=== PATIENT | female | born 1995 | race Caucasian/White ===

== ENCOUNTER 2016-11-15 15:05 | Emergency (ER) | payer SELFPAY ==
[~2016-11-15] VITALS: Ht 149.9 cm; Wt 49.9 kg
[2016-11-15 15:28] VITALS: BP 167/76
[2016-11-15] MEDS ORDERED: BENZTROPINE MESYLATE (2MG/2ML) 2 MG/2 ML AMPUL ONE (15:28)
[2016-11-15] MEDS ORDERED: BENZTROPINE MESYLATE (2MG/2ML) 2 MG/2 ML AMPUL IM ONE (15:30)
[2016-11-15 15:41] LABS: BASOPHILS % (AUTO) 0.2 % (0.0-2.0); DIFF TOTAL % 100 %; EOSINOPHILS % (AUTO) 0.3 % (0.0-6.0); HEMATOCRIT 43 % (33-45); HEMOGLOBIN 14.4 g/dL (11.5-14.8); LYMPHOCYTES # (AUTO) 3.6 /CMM (0.8-4.8); LYMPHOCYTES % (AUTO) 19.6 % (20.0-44.0); MEAN CORPUSCULAR HEMOGLOBIN 30 PG (26.0-33.0); MEAN CORPUSCULAR HGB CONC 33 g/dl (31.0-36.0); MEAN CORPUSCULAR VOLUME 91 fL (82-100); MONOCYTES # (AUTO) 0.8 /CMM (0.1-1.30); MONOCYTES % (AUTO) 4.6 % (2.0-12.0); NEUTROPHILS # (AUTO) 13.8 /CMM (1.8-8.9); NEUTROPHILS % (AUTO) 75.3 % (43.0-81.0); PLATELET COUNT (AUTO) 411 /CMM (150-450); RED BLOOD CELL COUNT(AUTO) 4.79 MIL/uL (4.0-5.2); WHITE BLOOD COUNT (AUTO) 18.4 K/uL (4.3-11.0)
[2016-11-15 15:49] LABS: ANION GAP 29 (5-14); CALCIUM, SERUM 9.1 mg/dL (8.5-10.1); CARBON DIOXIDE 15 mmol/L (21-32); CHLORIDE 104 mmol/L (98-107); CREATININE 1.4 mg/dL (0.6-1.3); GFR 48 mL/min (>60); GLUCOSE 132 mg/dL (74-106); POTASSIUM 3.5 mmol/L (3.5-5.1); SODIUM SERUM 144 mmol/L (136-145); UREA NITROGEN, BLOOD 13 mg/dL (7-18)
[2016-11-15 15:55] LABS: ALANINE AMINOTRANSFERASE 23 U/L (12-78); ALBUMIN 4.6 g/dL (3.4-5.0); ASPARTATE AMINOTRANSFERASE 13 U/L (15-37); BILIRUBIN,DIRECT 0.1 mg/dL (0.0-0.2); BILIRUBIN,TOTAL 0.7 mg/dL (0.2-1.0); INDIRECT BILIRUBIN 0.6 mg/dL (0.0-1.1); TOTAL PROTEIN, SERUM 8.2 g/dL (6.4-8.2)
[2016-11-15 15:57] LABS: ACETAMINOPHEN 0 ug/ml (10-30)
[2016-11-15] MEDS ORDERED: OLANZAPINE 10 MG VIAL IM ONE ×2 (16:30→16:38)
[2016-11-15] MEDS ORDERED: WATER FOR INJECTION,STERILE 10 ML ONE (16:38)
== END 2016-11-15 18:33 ==
LOC: ER 15:06
DX: R45.851 Suicidal ideations (principal); G40.909 Epilepsy, unspecified, not intractable, without status epilepticus; I10 Essential (primary) hypertension; F20.9 Schizophrenia, unspecified; F32.9 Major depressive disorder, single episode, unspecified; Z88.8 Allergy status to other drugs, medicaments and biological substances
CPT/HCPCS: 36415; 51702; 80048; 80076; 80329; 85025; 96372 ×2; 99285; A4606; G0480 ×2; J0515; J3490; Z7610; G6039-TC

== ENCOUNTER 2019-07-23 15:51 | Emergency (ER) | payer OTHER ==
[~2019-07-23] VITALS: Ht 142.2 cm; Wt 68.0 kg
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
--- NOTE | 2019-07-23 15:58 | NUR ---
DR MCKEON AT BEDSIDE
[2019-07-23] MEDS ORDERED: IBUPROFEN 400 MG TABLET ONE (17:13)
[2019-07-23] MEDS: IBUPROFEN 400 MG TABLET PO ONE (17:22)
--- NOTE | 2019-07-23 17:22 | NUR ---
Patient discharged [employer] in stable condition. Written and verbal after care instructions given. Patient and [employer] verbalizes understanding of instruction.
[2019-07-23 17:29] VITALS: BP 128/68
== END 2019-07-23 17:25 ==
LOC: ER 15:54
DX: S02.2XXA Fracture of nasal bones, initial encounter for closed fracture (principal); S00.83XA Contusion of other part of head, initial encounter; G40.909 Epilepsy, unspecified, not intractable, without status epilepticus; I10 Essential (primary) hypertension; F20.9 Schizophrenia, unspecified; F32.9 Major depressive disorder, single episode, unspecified; F10.10 Alcohol abuse, uncomplicated; Y90.9 Presence of alcohol in blood, level not specified; Z88.8 Allergy status to other drugs, medicaments and biological substances; Y04.8XXA Assault by other bodily force, initial encounter; Y93.89 Activity, other specified; Y92.89 Other specified places as the place of occurrence of the external cause; Y99.8 Other external cause status
CPT/HCPCS: 70486-TC; 71045-TC; 84703-TC